=== PATIENT | male | born 1965 | race Caucasian/White ===

== ENCOUNTER 2017-09-26 05:17 | Inpatient (IN) | payer OTHER ==
[2017-09-26] MEDS ORDERED: LACTATED RINGER'S 1,000 ML IV* (06:00)
[2017-09-26] MEDS: LACTATED RINGER'S 1,000 ML IV* (06:00)
[2017-09-26 06:37] LABS: ADD MAN DIFF? NO
[2017-09-26 06:40] LABS: BASOPHILS % 0.8 % (0.0-2.0); EOSINOPHILS # 0.1 10^3/ul (0.0-0.5); EOSINOPHILS % 1.5 % (0.0-7.0); HEMATOCRIT 39.4 % (42.0-52.0); HEMOGLOBIN 12.7 g/dl (14.0-18.0); LYMPHOCYTES # 1.7 10^3/ul (0.8-2.9); LYMPHOCYTES % 35.4 % (15.0-51.0); MEAN CORPUSCULAR HEMOGLOBIN 22.5 pg (29.0-33.0); MEAN CORPUSCULAR HGB CONC 32.2 g/dl (32.0-37.0); MEAN CORPUSCULAR VOLUME 69.9 fl (82.0-101.0); MEAN PLATELET VOLUME 11.8 fl (7.4-10.4); MONOCYTE # 0.6 10^3/ul (0.3-0.9); MONOCYTES % 13.3 % (0.0-11.0); NEUTROPHIL # 2.3 10^3/ul (1.6-7.5); NEUTROPHILS % 48.8 % (39.0-77.0); PLATELET COUNT 184 10^3/UL (140-415); RED BLOOD COUNT 5.64 10^6/ul (4.70-6.10); RED CELL DISTRIBUTION WIDTH 15.2 % (11.5-14.5)
[2017-09-26 06:40] LABS: WHITE BLOOD COUNT 4.8 10^3/ul (4.8-10.8)
[2017-09-26 06:47] LABS: ALANINE AMINOTRANSFERASE 41 IU/L (13-69); ALBUMIN 3.6 g/dl (3.3-4.9); ALBUMIN/GLOBULIN RATIO 1.24; ALKALINE PHOSPHATASE 75 IU/L (42-121); ANION GAP 11 (8-16); ASPARTATE AMINO TRANSFERASE 26 IU/L (15-46); BILIRUBIN,INDIRECT 0.5 mg/dl (0-1.1); BILIRUBIN,TOTAL 0.5 mg/dl (0.2-1.3); CARBON DIOXIDE 28 mmol/L (21-31); CHLORIDE 108 mmol/L (97-110); GLUCOSE 100 mg/dl (70-220); TOTAL PROTEIN 6.5 g/dl (6.1-8.1)
[2017-09-26 06:48] LABS: INR 1.06; PROTIME 13.9 Sec (11.9-14.9); PT RATIO 1.1
[2017-09-26 06:49] LABS: PARTIAL THROMBOPLASTIN TIME 30.9 Sec (25.0-35.0)
[2017-09-26] MEDS ORDERED: PROPOFOL 20 ML (06:54)
[2017-09-26] MEDS ORDERED: ROCURONIUM 50 MG INJ (06:54)
[2017-09-26] MEDS ORDERED: LIDOCAINE 2% (SDV) 5 ML INJ (06:54)
[2017-09-26 06:55] LABS: BLOOD UREA NITROGEN 11 mg/dl (7-20); CALCIUM 8.8 mg/dl (8.4-10.2); CREATININE 0.89 mg/dl (0.61-1.24); POTASSIUM 3.8 mmol/L (3.5-5.1); SODIUM 143 mmol/L (135-144)
[2017-09-26] MEDS ORDERED: DEXAMETHASONE 4 MG/ML 1 ML INJ (06:55)
[2017-09-26] MEDS ORDERED: ONDANSETRON 4 MG INJ (06:55)
[2017-09-26] MEDS: CEFAZOLIN 2 GM/50 ML (PMX) 50 ML IVPB (06:55)
[2017-09-26] MEDS ORDERED: HYDROmorphONE 2 MG/ML SYG (07:26)
[2017-09-26] MEDS: POVIDONE IODINE 10% 28.4 GM OINT (08:00)
[2017-09-26] MEDS: POLYMYXIN/BACITRACIN 1L IRRIG ×2 (08:23→09:59)
[2017-09-26] MEDS ORDERED: LABETALOL HCL 20MG INJ (08:34)
[2017-09-26] MEDS: GELATIN SIZE 100 SPONGE (08:43)
[2017-09-26] MEDS: THROMBIN 5000 UNIT VIAL (08:44)
[2017-09-26] MEDS ORDERED: SUGAMMADEX SODIUM 200 MG/2 ML VIAL IV (11:18)
[2017-09-26] MEDS: BUPIVACAINE 0.25% (MPF) 30 ML INJ (11:22)
[2017-09-26] MEDS ORDERED: hydrALAzine 20 MG INJ IV (12:00)
[2017-09-26] MEDS ORDERED: KETOROLAC 30 MG INJ IV (12:00)
[2017-09-26] MEDS ORDERED: HYDROmorphONE (0.2 MG/ML) 10ML SYG IV ×3 (12:00)
[2017-09-26] MEDS ORDERED: MIDAZOLAM 1 MG/ML 2 ML INJ IV (12:00)
[2017-09-26] MEDS ORDERED: EPHEDrine SULFATE 50 MG/5 ML SYG IV (12:00)
[2017-09-26] MEDS ORDERED: ALBUTEROL 0.083% (NEB) 2.5 MG/3 ML AMP HHN (12:00)
[2017-09-26] MEDS ORDERED: DIPHENHYDRAMINE 50 MG INJ IV (12:00)
[2017-09-26] MEDS ORDERED: OXYCODONE/ACETAMINOPHEN (5/325) TAB PO ×2 (12:00)
[2017-09-26] MEDS ORDERED: FENTAnyl 50 MCG/ML VIAL IV ×2 (12:00)
[2017-09-26] MEDS ORDERED: LABETALOL HCL 20MG INJ IV (12:00)
[2017-09-26] MEDS ORDERED: ONDANSETRON 4 MG INJ IV (12:00)
[2017-09-26] MEDS ORDERED: MEPERIDINE 25 MG INJ IV (12:00)
[2017-09-26] MEDS: FENTAnyl 50 MCG/ML VIAL IV (12:24)
[2017-09-26] MEDS ORDERED: NALOXONE (0.4 MG/ML) INJ IV (12:30)
[2017-09-26] MEDS ORDERED: DIPHENHYDRAMINE 50 MG CAP PO (12:30)
[2017-09-26] MEDS ORDERED: DIAZEPAM 5 MG/ML SYG IM (12:30)
[2017-09-26] MEDS ORDERED: TRIMETHOBENZAMIDE 100 MG/ML VIAL IM (12:30)
[2017-09-26] MEDS ORDERED: PROCHLORPERAZINE 10 MG TAB PO (12:30)
[2017-09-26] MEDS ORDERED: ACETAMINOPHEN 325 MG TAB PO (12:30)
[2017-09-26] MEDS ORDERED: NACL 0.9% 3 ML SYG IV (12:30)
[2017-09-26] MEDS ORDERED: AL HYDROX/MG HYDROX/SIMETH 30 ML CUP PO (12:30)
[2017-09-26] MEDS ORDERED: ZOLPIDEM 5 MG TAB PO (12:30)
[2017-09-26] MEDS: HYDROmorphONE 0.2 MG/ML PCA IV (12:36)
[2017-09-26] MEDS: CEFAZOLIN 1 GM/50 ML (PMX) 50 ML IVPB ×2 (14:05→18:17)
[2017-09-26] MEDS: CEPASTAT LOZENGE MT ×2 (14:31→20:44)
[2017-09-26] MEDS: DEXTROSE 5%-0.45% NACL 1,000 ML IV ×2 (14:32→22:19)
[2017-09-26] MEDS: ONDANSETRON 4 MG INJ IV ×2 (16:39→22:20)
[2017-09-26] MEDS: DIAZEPAM 5 MG TAB PO (19:55)
[2017-09-26] MEDS: RANITIDINE 150 MG TAB PO (20:44)
[2017-09-27] MEDS: CEFAZOLIN 1 GM/50 ML (PMX) 50 ML IVPB ×2 (00:08→05:50)
[2017-09-27] MEDS: ONDANSETRON 4 MG INJ IV (05:50)
[2017-09-27] MEDS: DIAZEPAM 5 MG TAB PO (06:05)
[2017-09-27 06:07] LABS: HEMATOCRIT 35.7 % (42.0-52.0); HEMOGLOBIN 11.5 g/dl (14.0-18.0)
[2017-09-27 06:24] LABS: ANION GAP 14 (8-16); BLOOD UREA NITROGEN 9 mg/dl (7-20); CALCIUM 8.6 mg/dl (8.4-10.2); CARBON DIOXIDE 26 mmol/L (21-31); CHLORIDE 105 mmol/L (97-110); CREATININE 0.88 mg/dl (0.61-1.24); GLUCOSE 132 mg/dl (70-220); POTASSIUM 3.9 mmol/L (3.5-5.1); SODIUM 141 mmol/L (135-144)
[2017-09-27] MEDS ORDERED: BETHANECHOL 25 MG TAB PO (08:00)
[2017-09-27] MEDS: BETHANECHOL 25 MG TAB PO (09:02)
[2017-09-27] MEDS: ASCORBIC ACID 500 MG TAB PO (09:02)
[2017-09-27] MEDS: RANITIDINE 150 MG TAB PO (09:02)
[2017-09-27] MEDS: FERROUS SULFATE (EC) 325 MG TAB PO ×2 (09:02→14:53)
[2017-09-27] MEDS: DOCUSATE SODIUM 100 MG CAP PO (09:02)
[2017-09-27] MEDS: HYDROCODONE/APAP (5/325) TAB PO ×2 (10:12→14:50)
[2017-09-27 12:01] LABS: ADD UMIC NO; UR ASCORBIC ACID NEGATIVE (NEGATIVE); UR BILIRUBIN (Dip) NEGATIVE (NEGATIVE); UR BLOOD (Dip) NEGATIVE (NEGATIVE); UR CLARITY CLEAR (CLEAR); UR COLOR YELLOW (YELLOW); UR GLUCOSE (Dip) NEGATIVE (NEGATIVE); UR KETONES (Dip) NEGATIVE (NEGATIVE); UR LEUKOCYTE ESTERASE (Dip) NEGATIVE Leu/ul (NEGATIVE); UR NITRITE (Dip) NEGATIVE (NEGATIVE); UR SPECIFIC GRAVITY (Dip) 1.008 (1.003-1.030); UR TOTAL PROTEIN (Dip) NEGATIVE (NEGATIVE); UR UROBILINOGEN (Dip) NEGATIVE (NEGATIVE)
== END 2017-09-27 17:58 | disposition home or self-care (01) | DRG 473 ==
LOC: REC 05:17 → MS1 14:12
PROC: 0RB30ZZ Excision of Cervical Vertebral Disc, Open Approach (ICD-10-PCS; principal; 2017-09-26 07:12)
PROC: 0RG20A0 Fusion of 2 or more Cervical Vertebral Joints with Interbody Fusion Device, Anterior Approach, Anterior Column, Open Approach (ICD-10-PCS; 2017-09-26 07:12)
PROC: 00NW0ZZ Release Cervical Spinal Cord, Open Approach (ICD-10-PCS; 2017-09-26 07:12)
PROC: 01N10ZZ Release Cervical Nerve, Open Approach (ICD-10-PCS; 2017-09-26 07:12)
DX: M50.222 Other cervical disc displacement at C5-C6 level (principal)
CPT/HCPCS: 72020; 72040; 80048; 80053; 81003; 85014; 85018; 85025; 85610; 85730; 86850; 86900; 86901; 86920; 87086; 97116; 97163; 97530